=== PATIENT | female | born 1950 | race Two or more races ===

== ENCOUNTER 2020-11-28 15:55 | Inpatient (IN) | payer OTHER ==
[~2020-11-28] VITALS: Ht 160 cm; Wt 83.9 kg
[2020-11-28] MEDS ORDERED: CARVEDILOL ER40 MG (16:20)
[2020-11-28] MEDS ORDERED: HUMALOG MI100 UNIT/2 (16:21)
--- NOTE | 2020-11-28 16:22 | NUR ---
PACIENTE ALERTA Y ORIENTADA POR ARIANA. REFIERE INFLAMACION EN PIERNA DERECHA DESDE TERRY Y DOLOR EN ESPALDA BAJA.
--- NOTE | 2020-11-28 16:28 | NUR ---
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
--- NOTE | 2020-11-28 17:20 | NUR ---
SE LE ORIENTA SOBRE TRATAMIENTO A SEGUIR, LESLI REFIERE ENTENDER. SE LE COLECTA MUESTRAS, SE CANALIZA UTILIZANDO MEDIDAS ASEPTICAS.
== END 2020-12-02 19:50 | disposition home or self-care (01) | DRG 66 ==
LOC: ER 15:55 → SEC-K 19:57 → MEDI 19:57
PROVIDERS: ADMIT Internal Medicine; ATTEND Internal Medicine
PROC: B24BZZZ Ultrasonography of Heart with Aorta (ICD-10-PCS; principal; 2020-11-29)
PROC: B348ZZZ Ultrasonography of Bilateral Internal Carotid Arteries (ICD-10-PCS; 2020-11-29)
PROC: 4A12X4Z Monitoring of Cardiac Electrical Activity, External Approach (ICD-10-PCS; 2020-11-29)
PROC: B030ZZZ Magnetic Resonance Imaging (MRI) of Brain (ICD-10-PCS; 2020-11-30)
DX: I63.522 Cerebral infarction due to unspecified occlusion or stenosis of left anterior cerebral artery (principal); G83.11 Monoplegia of lower limb affecting right dominant side; I10 Essential (primary) hypertension; E11.9 Type 2 diabetes mellitus without complications; Z79.4 Long term (current) use of insulin
CPT/HCPCS: 70551

== ENCOUNTER 2021-03-09 11:21 | Emergency (ER) | payer OTHER ==
[~2021-03-09] VITALS: Ht 165.1 cm; Wt 81.6 kg
[~2021-03-09 11:21] MED LIST: CARVEDILOL ER40 MG; HUMALOG MI100 UNIT/2
[2021-03-09] MEDS ORDERED: GLUMETZA1000 MG (11:28)
[2021-03-09] MEDS ORDERED: HUMULIN N100 UNIT/2 (11:28)
[2021-03-09] MEDS ORDERED: LANTUS SOL100 UNIT/1 (11:28)
[2021-03-09] MEDS ORDERED: LIPITOR40 MG (11:28)
[2021-03-09] MEDS ORDERED: COZAAR50 MG (11:28)
[2021-03-09] MEDS ORDERED: PROTONIX40 MG (11:28)
[2021-03-09] MEDS ORDERED: COREG CR10 MG (11:29)
== END 2021-03-09 18:09 | disposition home or self-care (01) ==
LOC: ER 11:21
DX: S70.02XA Contusion of left hip, initial encounter (principal); R20.0 Anesthesia of skin; M62.81 Muscle weakness (generalized); W18.09XA Striking against other object with subsequent fall, initial encounter; Y93.89 Activity, other specified; Y92.89 Other specified places as the place of occurrence of the external cause; Y99.8 Other external cause status; Z03.818 Encounter for observation for suspected exposure to other biological agents ruled out

== ENCOUNTER 2023-02-07 23:12 | Emergency (ER) | payer OTHER ==
[~2023-02-07] VITALS: Ht 160 cm; Wt 68.0 kg
[~2023-02-07 23:12] MED LIST changes: +COREG CR10 MG; +COZAAR50 MG; +GLUMETZA1000 MG; +HUMULIN N100 UNIT/2; +LANTUS SOL100 UNIT/1; +LIPITOR40 MG; +PROTONIX40 MG
[2023-02-08] MEDS ORDERED: ONDANSETRON ODT4 MG PO (03:52)
[2023-02-08] MEDS ORDERED: PEPCID40 MG PO (03:52)
== END 2023-02-08 06:06 ==
LOC: ER 23:12
DX: R10.13 Epigastric pain (principal); R11.10 Vomiting, unspecified; I10 Essential (primary) hypertension; E11.9 Type 2 diabetes mellitus without complications; Z79.84 Long term (current) use of oral hypoglycemic drugs
CPT/HCPCS: 36415; 96365; 96366; 96372; 99283; J2550; J3490; J7030

== ENCOUNTER 2023-07-15 13:41 | Emergency (ER) | payer OTHER ==
[~2023-07-15] VITALS: Ht 157.5 cm; Wt 68.0 kg
[~2023-07-15 13:41] MED LIST changes: +ONDANSETRON ODT4 MG PO; +PEPCID40 MG PO
[2023-07-15 15:03] LABS: HEMATOCRIT 36.6 % (36.0-45.00); HEMOGLOBIN 12.7 g/dL (12.0-15.00); MEAN CELL VOLUME 84.1 fL (80.00-100.00); MEAN CORPUSCULAR HEMOGLOBIN 29.3 pg (27.00-32.0); MEAN CORPUSCULAR HGB CONC 34.8 g/dl (32.0-36.0); PLATELET COUNT 236 K/uL (150-450); RED BLOOD COUNT 4.36 M/uL (4.00-6.00); RED CELL DISTRIBUTION WIDTH 13.9 % (11.5-14.5)
[2023-07-15 15:31] LABS: CALCIUM 10.2 mg/dL (8.5-10.1); CREATININE SERUM 1.05 mg/dL (0.55-1.02); GFR 51.66; POTASSIUM 3.33 mEq/L (3.5-5.1)
[2023-07-15 15:33] LABS: URINE APPEARANCE Cloudy; URINE BILIRRUBIN Negative (NEGATIVE); URINE BLOOD Moderate; URINE COLOR Yellow; URINE GLUCOSE Negative (NEGATIVE); URINE LEUKOCYTE Large; URINE NITRATE Negative; URINE PROTEIN 30 (NEGATIVE)
[2023-07-15 15:34] LABS: URINE EPITHELIAL CELLS 16.8 uL (0.0-38.8); URINE RBC 328.6 uL (0.0-20.8); URINE WBC 355.7 uL (0.0-23.2)
[2023-07-15 16:14] LABS: URINE BACTERIA > 9821.2 uL (0.0-1933)
== END 2023-07-15 19:48 | disposition home or self-care (01) ==
LOC: ER 13:41
PROVIDERS: Emergency Medicine
DX: R63.0 Anorexia (principal); M54.9 Dorsalgia, unspecified; I10 Essential (primary) hypertension; E78.00 Pure hypercholesterolemia, unspecified; E11.9 Type 2 diabetes mellitus without complications; Z79.4 Long term (current) use of insulin
CPT/HCPCS: 36415; 96365; 96366; 99284; J0696; J7030

== ENCOUNTER 2023-08-30 11:00 | Emergency (ER) | payer OTHER ==
[~2023-08-30] VITALS: Ht 160 cm; Wt 95.3 kg
[2023-08-30] MEDS ORDERED: AMLODIPINE BESY10 MG PO (11:25)
[2023-08-30] MEDS ORDERED: ATORVASTATIN CA40 MG PO (11:25)
[2023-08-30] MEDS ORDERED: BUSPIRONE HCL10 MG PO (11:25)
[2023-08-30] MEDS ORDERED: HYDROCHLOROTHIA25 MG PO (11:26)
[2023-08-30] MEDS ORDERED: LOSARTAN POTAS100 MG PO (11:26)
[2023-08-30] MEDS ORDERED: CARVEDILOL3.125 M1 PO (11:26)
[2023-08-30] MEDS ORDERED: MEMANTINE HCL10 MG PO (11:26)
[2023-08-30] MEDS ORDERED: CLONAZEPAM0.5 MG PO (11:26)
[2023-08-30] MEDS ORDERED: CLOPIDOGREL BIS75 MG PO (11:26)
[2023-08-30] MEDS ORDERED: CLINDAMYCIN HC150 MG PO (11:27)
[2023-08-30] MEDS ORDERED: PANTOPRAZOLE SO40 MG PO (11:27)
[2023-08-30] MEDS ORDERED: QUETIAPINE FUMA50 MG PO (11:27)
[2023-08-30] MEDS ORDERED: ABATINEX680 MG PO (11:27)
[2023-08-30] MEDS ORDERED: CEFDINIR300 MG PO (11:27)
[2023-08-30 12:42] LABS: CALCIUM 9.6 mg/dL (8.5-10.1); CREATININE SERUM 0.89 mg/dL (0.55-1.02); GFR 62.52
[2023-08-30 12:47] LABS: POTASSIUM 3.84 mEq/L (3.5-5.1)
[2023-08-30 12:51] LABS: HEMATOCRIT 36.4 % (36.0-45.00); HEMOGLOBIN 12.6 g/dL (12.0-15.00); MEAN CORPUSCULAR HEMOGLOBIN 30.2 pg (27.00-32.0); MEAN CORPUSCULAR HGB CONC 34.8 g/dl (32.0-36.0); PLATELET COUNT 266 K/uL (150-450); RED BLOOD COUNT 4.18 M/uL (4.00-6.00); RED CELL DISTRIBUTION WIDTH 13.5 % (11.5-14.5)
[2023-08-30 16:20] LABS: URINE APPEARANCE Clear; URINE BILIRRUBIN Negative (NEGATIVE); URINE BLOOD Negative; URINE COLOR Yellow; URINE EPITHELIAL CELLS 2.6 uL (0.0-38.8); URINE GLUCOSE Negative (NEGATIVE); URINE LEUKOCYTE Large; URINE NITRATE Positive; URINE PROTEIN 30 (NEGATIVE); URINE UROBILINOGEN 0.2 E.U./dl; URINE WBC 240.4 uL (0.0-23.2)
[2023-08-30 16:43] LABS: URINE BACTERIA > 9821.2 uL (0.0-1933); URINE RBC 1.4 uL (0.0-20.8)
== END 2023-08-30 20:23 | disposition home or self-care (01) ==
LOC: ER 11:00
PROVIDERS: Emergency Medicine
DX: I10 Essential (primary) hypertension (principal); E11.9 Type 2 diabetes mellitus without complications; Z79.4 Long term (current) use of insulin; Z79.84 Long term (current) use of oral hypoglycemic drugs; E03.9 Hypothyroidism, unspecified

== ENCOUNTER 2024-12-10 12:17 | Inpatient (IN) | payer OTHER ==
[~2024-12-10] VITALS: Ht 165.1 cm; Wt 65.8 kg
[~2024-12-10 12:17] MED LIST changes: +ABATINEX680 MG PO; +AMLODIPINE BESY10 MG PO; +ATORVASTATIN CA40 MG PO; +BUSPIRONE HCL10 MG PO; +CARVEDILOL3.125 M1 PO; +CEFDINIR300 MG PO; +CLINDAMYCIN HC150 MG PO; +CLONAZEPAM0.5 MG PO; +CLOPIDOGREL BIS75 MG PO; +HYDROCHLOROTHIA25 MG PO; +LOSARTAN POTAS100 MG PO; +MEMANTINE HCL10 MG PO; +PANTOPRAZOLE SO40 MG PO; +QUETIAPINE FUMA50 MG PO
[2024-12-10] MEDS ORDERED: 0.9 % SODIUM CHLORIDE 1,000 ML IV SCH ×2 (12:45→19:15)
[2024-12-10 13:54] LABS: BASO % 0.2 % (0.1-1.2); EOS # 0.16 (0.04-0.54); HEMATOCRIT 38.7 % (34.1-44.9); LYMPH # 1.83 (1.18-3.74); LYMPH % 10.9 % (19.3-53.1); MEAN CORPUSCULAR HEMOGLOBIN 28.1 pg (25.6-32.2); MONO # 0.86 (0.24-0.82); MONO % 5.1 % (4.7-12.5); NEUT # 13.87 (1.56-6.13); NEUT % 82.4 % (34.0-71.1); PLATELET COUNT 265 K/uL (163-369); RED BLOOD COUNT 4.63 M/uL (3.93-5.22); RED CELL DISTRIBUTION WIDTH 13.4 % (11.6-14.4)
[2024-12-10 14:34] LABS: CALCIUM 9.8 mg/dL (8.5-10.1); CREATININE SERUM 1.03 mg/dL (0.55-1.02); GFR 52.67; POTASSIUM 3.29 mEq/L (3.5-5.1)
[2024-12-10 14:52] LABS: URINE APPEARANCE Clear; URINE BILIRRUBIN Negative (NEGATIVE); URINE BLOOD Negative; URINE COLOR Dark Yellow; URINE GLUCOSE Negative (NEGATIVE); URINE KETONE Trace (NEGATIVE); URINE LEUKOCYTE Moderate; URINE NITRATE Positive
[2024-12-10 14:56] LABS: URINE RBC 2.7 uL (0.0-20.8)
[2024-12-10 15:15] LABS: URINE CAST 0.29 uL (0.0-1.40); URINE PROTEIN 100 (NEGATIVE)
[2024-12-10 15:16] LABS: URINE WBC 150.7 uL (0.0-23.2)
[2024-12-10] MEDS ORDERED: CEFTRIAXONE SODIUM 2,000 MG in 0.9 % SODIUM CHLORIDE 100 ML IV SCH (19:06)
[2024-12-10] MEDS ORDERED: FAMOTIDINE/PF 20 MG in 0.9 % SODIUM CHLORIDE 8 ML IV PUSH SCH (19:07)
[2024-12-10] MEDS ORDERED: AMLODIPINE BESYLATE 10 MG TABLET PO SCH (19:09)
[2024-12-10] MEDS ORDERED: POTASSIUM CHLORIDE 20MEQ/100ML H2O PB IV ONE (19:15)
[2024-12-10] MEDS ORDERED: INSULIN LISPRO 1,000 UNIT/10 ML UNITS SUBCUTANEO PRN (19:15)
[2024-12-10] MEDS ORDERED: ACETAMINOPHEN 500 MG GEL..CAP PO PRN (19:15)
[2024-12-10] MEDS ORDERED: CLOTRIMAZOLE 15 GM TUBE TOP NR (19:15)
[2024-12-10] MEDS ORDERED: DEXTROSE 50 % IN WATER 0.5 G/ML DISP.SYRIN IV PRN (19:15)
[2024-12-10] MEDS ORDERED: CARVEDILOL 3.125 MG TABLET PO SCH (21:00)
[2024-12-10 21:12] VITALS: BP 150/84; O2SAT 100
[2024-12-11 03:02] VITALS: BP 156/78
[2024-12-11 06:42] LABS: MAGNESIUM 1.7 mg/dL (1.8-2.4)
[2024-12-11 06:43] LABS: C-REACTIVE PROTEIN 2.84 MG/DL (0.00-0.29)
[2024-12-11] MEDS ORDERED: LOSARTAN/HYDROCHLOROTHIAZIDE 1 UDTAB TABLET PO SCH (09:00)
[2024-12-11] MEDS ORDERED: CLOPIDOGREL BISULFATE 75 MG TABLET PO SCH (09:00)
[2024-12-11] MEDS ORDERED: ENOXAPARIN SODIUM 40 MG/0.4 ML SYRINGE SUBCUTANEO SCH (09:00)
[2024-12-11] MEDS ORDERED: ATORVASTATIN CALCIUM 40 MG TABLET PO SCH (09:00)
[2024-12-11 09:53] VITALS: BP 168/89; O2SAT 97
[2024-12-11] MEDS ORDERED: MAGNESIUM SULFATE IN WATER 4 GM/100 ML PIGGYBACK IV NR (15:30)
[2024-12-11] MEDS ORDERED: LACTOBACILLUS ACIDOPHILUS 1 CAP CAP PO SCH (17:00)
[2024-12-11] MEDS ORDERED: METRONIDAZOLE/SODIUM CHLORIDE 500 MG/100 ML PIGGYBACK IV SCH (17:00)
[2024-12-11] MEDS ORDERED: FAMOtidine 20 MG TABLET PO SCH (17:00)
[2024-12-11] MEDS ORDERED: POTASSIUM CHLORIDE IN WATER 100 ML IV NR (18:00)
[2024-12-11 18:43] VITALS: BP 130/69
[2024-12-11] MEDS ORDERED: BUSPIRONE HCL 5 MG TABLET PO SCH (21:00)
[2024-12-11] MEDS ORDERED: QUETIAPINE FUMARATE 25 MG TABLET PO SCH (21:00)
[2024-12-12 02:24] VITALS: BP 128/66; O2SAT 98
[2024-12-12 08:09] LABS: BASO % 0.6 % (0.1-1.2); EOS # 0.54 (0.04-0.54); EOS % 6.1 % (0.7-7.0); HEMATOCRIT 38.4 % (34.1-44.9); HEMOGLOBIN 13.1 g/dL (11.2-15.7); LYMPH # 2.34 (1.18-3.74); LYMPH % 26.5 % (19.3-53.1); MEAN CORPUSCULAR HEMOGLOBIN 28.5 pg (25.6-32.2); MONO # 0.65 (0.24-0.82); MONO % 7.4 % (4.7-12.5); NEUT # 5.22 (1.56-6.13); NEUT % 59.1 % (34.0-71.1); PLATELET COUNT 245 K/uL (163-369); RED BLOOD COUNT 4.59 M/uL (3.93-5.22); RED CELL DISTRIBUTION WIDTH 13.2 % (11.6-14.4)
[2024-12-12 08:51] LABS: ALBUMIN 3.4 gm/dL (3.4-5.0); BILIRUBIN TOTAL 0.48 mg/dL (0.3-1.2); CALCIUM 9.9 mg/dL (8.5-10.1); CREATININE SERUM 0.76 mg/dL (0.55-1.02); GFR 74.81; GLOBULINA 3.5 G/DL (2.4-3.5); MAGNESIUM 2.5 mg/dL (1.8-2.4); PHOSPHOROUS 2.6 mg/dL (2.5-4.9); POTASSIUM 4.83 mEq/L (3.5-5.1); TOTAL PROTEIN 6.9 gm/dL (6.4-8.2)
[2024-12-12] MEDS ORDERED: CLONAZEPAM 0.5 MG TABLET PO SCH (09:00)
[2024-12-12 09:24] VITALS: BP 173/71; O2SAT 98
[2024-12-12] MEDS ORDERED: MEROPENEM 500 MG/VIAL VIAL IV NR (10:00)
[2024-12-12] MEDS ORDERED: MEROPENEM 500 MG/VIAL VIAL IV SCH (14:00)
[2024-12-12 18:23] VITALS: BP 178/78
[2024-12-13 02:38] VITALS: BP 149/80; O2SAT 95
[2024-12-13] MEDS ORDERED: EMOLLIENT COMBINATION NO.92 2.5 OZ BOTTLE TOP SCH (09:00)
[2024-12-13 10:04] VITALS: BP 124/57
[2024-12-13] MEDS ORDERED: SODIUM CHLORIDE 0.45 % 1,000 ML IV SCH (11:15)
[2024-12-13] MEDS ORDERED: ENALAPRILAT DIHYDRATE 1.25 MG/ML VIAL IV PRN (11:15)
[2024-12-13] MEDS ORDERED: PIPERACILLIN/TAZOBACTAM SODIUM 3.375 GM in DEXTROSE 5 % IN WATER 100 ML IV SCH (12:00)
[2024-12-13 15:32] LABS: URINE APPEARANCE Clear; URINE BILIRRUBIN Negative (NEGATIVE); URINE BLOOD Moderate; URINE COLOR Yellow; URINE GLUCOSE Negative (NEGATIVE); URINE KETONE Trace (NEGATIVE); URINE LEUKOCYTE Small; URINE NITRATE Negative; URINE UROBILINOGEN 0.2 E.U./dl
[2024-12-13 15:33] LABS: URINE BACTERIA 68.5 uL (0.0-1933); URINE EPITHELIAL CELLS 22.3 uL (0.0-38.8); URINE RBC 268.6 uL (0.0-20.8)
[2024-12-13 15:34] LABS: URINE CAST 0.44 uL (0.0-1.40); URINE PROTEIN 100 (NEGATIVE)
[2024-12-13 17:29] VITALS: BP 162/92
[2024-12-14 01:45] VITALS: BP 168/63; O2SAT 99
[2024-12-14 08:38] VITALS: BP 160/80; O2SAT 97
[2024-12-14 13:12] LABS: ALBUMIN 3.1 gm/dL (3.4-5.0); BILIRUBIN TOTAL 0.52 mg/dL (0.3-1.2); CREATININE SERUM 0.93 mg/dL (0.55-1.02); GFR 59.26; GLOBULINA 3.1 G/DL (2.4-3.5); MAGNESIUM 1.8 mg/dL (1.8-2.4); PHOSPHOROUS 2.3 mg/dL (2.5-4.9); POTASSIUM 4.1 mEq/L (3.5-5.1); TOTAL PROTEIN 6.2 gm/dL (6.4-8.2)
[2024-12-14 15:27] LABS: BASO % 0.8 % (0.1-1.2); EOS # 0.46 (0.04-0.54); HEMATOCRIT 34.3 % (34.1-44.9); HEMOGLOBIN 11.5 g/dL (11.2-15.7); LYMPH # 2.07 (1.18-3.74); LYMPH % 27.1 % (19.3-53.1); MEAN CORPUSCULAR HEMOGLOBIN 28.3 pg (25.6-32.2); MONO # 0.54 (0.24-0.82); MONO % 7.1 % (4.7-12.5); NEUT % 58.7 % (34.0-71.1); PLATELET COUNT 240 K/uL (163-369); RED BLOOD COUNT 4.06 M/uL (3.93-5.22); RED CELL DISTRIBUTION WIDTH 13.2 % (11.6-14.4)
[2024-12-14 16:55] VITALS: BP 184/76
[2024-12-15 01:10] VITALS: BP 132/59; O2SAT 98
[2024-12-15 08:16] VITALS: BP 165/70; O2SAT 97
[2024-12-15] MEDS ORDERED: POTASSIUM PHOS,M-BASIC-D-BASIC 15 MM in 0.9 % SODIUM CHLORIDE 250 ML IV NR (17:30)
[2024-12-15 17:40] VITALS: BP 149/74; O2SAT 100
[2024-12-16 02:55] VITALS: BP 134/86; O2SAT 96
[2024-12-16 09:17] VITALS: BP 145/60; O2SAT 97
[2024-12-16 17:13] VITALS: BP 173/75; O2SAT 100
[2024-12-16] MEDS ORDERED: BISMUTH SUBSALICYLATE 262 MG/15 ML BLIST.PACK PO PRN (20:30)
[2024-12-17 02:25] VITALS: BP 164/86; O2SAT 98
[2024-12-17 09:10] VITALS: BP 144/63
[2024-12-17] MEDS ORDERED: METROnidazole 500 MG TABLET PO STA (10:34)
[2024-12-17 17:56] VITALS: BP 160/85; O2SAT 98
[2024-12-17] MEDS ORDERED: METROnidazole 500 MG TABLET PO SCH (21:00)
[2024-12-18 02:55] VITALS: BP 150/87; O2SAT 99
[2024-12-18 09:19] VITALS: BP 145/73; O2SAT 96
[2024-12-18] MEDS ORDERED: CARVEDILOL3.125 MG PO (14:10)
[2024-12-18] MEDS ORDERED: AMLODIPINE BESY10 MG PO (14:10)
[2024-12-18] MEDS ORDERED: BUSPIRONE HCL5 MG PO (14:10)
[2024-12-18] MEDS ORDERED: QUETIAPINE FUMA25 MG PO (14:10)
[2024-12-18] MEDS ORDERED: CLOPIDOGREL BIS75 MG PO (14:10)
[2024-12-18] MEDS ORDERED: LOSARTAN-HCTZ1 EAC2 PO (14:10)
[2024-12-18] MEDS ORDERED: LIPITOR40 M1 PO (14:10)
[2024-12-18] MEDS ORDERED: METRONIDAZOLE500 MG PO (14:10)
[2024-12-18] MEDS ORDERED: FAMOTIDINE20 MG PO (14:10)
[2024-12-18] MEDS ORDERED: INTESTINEX680 M1 PO (14:10)
[2024-12-18] MEDS ORDERED: CLONAZEPAM0.5 MG PO (14:10)
[2024-12-18 17:24] VITALS: BP 125/78; O2SAT 100
== END 2024-12-18 17:36 | disposition home or self-care (01) | DRG 872 ==
LOC: ER 12:17 → MEDJ 19:19
PROVIDERS: Emergency Medicine; General Practice; Internal Medicine Geriatric Medicine; Internal Medicine Infectious Disease; ADMIT Internal Medicine; ATTEND Internal Medicine
PROC: BW21ZZZ Computerized Tomography (CT Scan) of Abdomen and Pelvis (ICD-10-PCS; principal; 2024-12-10)
PROC: 8E0ZXY6 Isolation (ICD-10-PCS; 2024-12-12)
PROC: BW28ZZZ Computerized Tomography (CT Scan) of Head (ICD-10-PCS; 2024-12-13)
PROC: BW21ZZZ Computerized Tomography (CT Scan) of Abdomen and Pelvis (ICD-10-PCS; 2024-12-17)
DX: A41.9 Sepsis, unspecified organism (principal); N39.0 Urinary tract infection, site not specified; N17.8 Other acute kidney failure; E87.6 Hypokalemia; I10 Essential (primary) hypertension; B96.29 Other Escherichia coli [E. coli] as the cause of diseases classified elsewhere; K52.9 Noninfective gastroenteritis and colitis, unspecified; E86.0 Dehydration; G30.9 Alzheimer's disease, unspecified; F02.80 Dementia in other diseases classified elsewhere, unspecified severity, without behavioral disturbance, psychotic disturbance, mood disturbance, and anxiety; E11.9 Type 2 diabetes mellitus without complications; Z79.4 Long term (current) use of insulin; E83.42 Hypomagnesemia